=== PATIENT | male | born 1940 | race Caucasian/White ===

== ENCOUNTER 2016-07-15 08:30 | Day surgery (SDC) | payer MEDICARE, OTHER ==
[~2016-07-15] VITALS: Ht 188 cm; Wt 109.6 kg
--- NOTE | ~2016-07-15 | OR ---
ADMIT: 07/15/2016 RM/LOC: [facility] MR#: [id number] [address] KAYA FUNG [address] [place] [address] Operative/Delivery Room Report SEX: M AGE: 76 : 1940 SURGERY DATE: 07/15/2016 SURGEON: Denilson Amador MD PREOPERATIVE DIAGNOSES: Chronic cholecystitis and cholelithiasis. POSTOP DIAGNOSES: Chronic cholecystitis and cholelithiasis. FINAL PATHOLOGY: Pending. PROCEDURE: Laparoscopic cholecystectomy. AUTOCAD DESIGNER: CARRIE Coburn who was necessary for adequate exposure, retraction, and completion of this case. ANESTHESIA: General endotracheal tube anesthesia. ESTIMATED BLOOD LOSS: 30 mL or less. INDICATION FOR PROCEDURE: Please see H and P. PROCEDURE IN DETAIL: After the risks, benefits, possible complications, and the alternatives have been explained, and informed consent had been obtained, the patient was taken back to the operating room, underwent general endotracheal tube anesthesia, and the surgical field was prepped and draped in a sterile manner. A supraumbilical incision was made. The Veress needle was inserted. The abdomen was insufflated with CO2. Once there was adequate insufflation, a 5 mm port was placed and camera was placed through this port site. Very heavy omentum, colon stuck up kind of over the liver. As we raised the head up, I was able to slowly get down and off a few adhesions that needed to be cleaned out. Definitely a chronic cholecystitis. Gallbladder slowly cleaned this extra fat off, it was around there chronically adhered. ADMIT: 07/15/2016 RM/LOC: [facility] MR#: [id number] [address] KAYA FUNG [address] [place] [address] Operative/Delivery Room Report SEX: M AGE: 76 : 1940 Got the cystic duct dissected out, as well as cystic artery as seen in picture 1. They were both clipped proximally, distally, and divided. The gallbladder was then removed from the liver bed using electrocautery and EndoShears, placed in EndoCatch bag as seen in picture 2 and removed through the epigastric port site. I inspected the liver bed as seen in picture 3. I irrigated and removed as much irrigation as possible. The liver bed appeared dry. I did not see any bleeding or issues after all the irrigation. We then placed 0.5% Marcaine in the incision sites for pain control. Closed the fascia of the epigastric port site with an 0 Polysorb suture and all the ports were removed and the skin was all closed with 4-0 Monocryl. He tolerated the procedure well, was extubated and taken to recovery room in stable and satisfactory condition. Denilson Amador MD/ trevor JOB #: [id number] CC: Denilson Amador, Attending Physician Donald Dunlap, Family Physician
--- NOTE | 2016-08-02 12:20 | HP ---
ADMIT: 07/15/2016 RM/LOC: [facility] MR#: [id number] [address] KAYA FUNG [address] [place], [place] [id number] Pre-OP History and Physical SEX: M AGE: 76 : 1940 DATE OF SERVICE: ADDENDUM: You can see my previously dictated H and P and note. Nothing else significant has changed with his history, medications, or physical exam since the previous dictated note. Plan is to proceed with laparoscopic cholecystectomy for symptomatic cholelithiasis and chronic cholecystitis. The patient has been seen and examined without any other significant changes as above. PLAN: Lap cholecystectomy. Denilson Amador MD/ trevor JOB #: [id number] CC: Denilson Amador, Attending Physician UNKNOWN, Family Physician
== END 2016-07-15 17:00 | disposition home or self-care (01) ==
LOC: SSS 08:30
PROC: 0FT44ZZ Resection of Gallbladder, Percutaneous Endoscopic Approach (ICD-10-PCS; principal; 2016-07-15)
DX: K80.10 Calculus of gallbladder with chronic cholecystitis without obstruction (principal); G47.30 Sleep apnea, unspecified; I10 Essential (primary) hypertension; I48.91 Unspecified atrial fibrillation; K21.9 Gastro-esophageal reflux disease without esophagitis; E03.9 Hypothyroidism, unspecified; Z96.653 Presence of artificial knee joint, bilateral; Z98.890 Other specified postprocedural states; Z99.81 Dependence on supplemental oxygen; Z79.899 Other long term (current) drug therapy